=== PATIENT | male | born 1935 | race Caucasian/White ===

== ENCOUNTER 2016-12-21 06:50 | Day surgery (SDC) | payer MEDICARE, OTHER ==
[~2016-12-21] VITALS: Ht 177.8 cm; Wt 88.2 kg
[2016-12-21] VITALS (9 sets, daily range): BP systolic 115–139; BP diastolic 59–73; PULSE 45–52; RESP 13–19; O2SAT 97–100
[~2016-12-21 06:50] MED LIST: ASPI-973 PO; ATOR20TA PO; CeFAZolin 2 Gm/50 mL D5W IV Premix IV ONE; METO25TA6 PO
[2016-12-21] MEDS ORDERED: fentaNYL-PF 50 mCg/mL 2 mL Inj ONE (06:51)
[2016-12-21] MEDS ORDERED: Propofol 10,000 mCg/mL 20 mL Inj ONE (06:51)
[2016-12-21] MEDS ORDERED: Phenylephrine/NS 100 mCg/mL 10 mL Syringe IVPUSH ONE (06:51)
[2016-12-21] MEDS ORDERED: Ondansetron 2 mg/mL 2 mL Inj ONE (06:51)
[2016-12-21] MEDS: Lactated Ringer's 1,000 ML IV SCH ×2 (07:27→09:14)
[2016-12-21] MEDS ORDERED: Lactated Ringer's 1,000 ML IV SCH (08:14)
[2016-12-21] MEDS ORDERED: Lactated Ringer's 500 ML IV PRN (08:14)
[2016-12-21] MEDS ORDERED: fentaNYL-PF 50 mCg/mL 2 mL Inj IVPUSH PRN (08:15)
[2016-12-21] MEDS ORDERED: Dexamethasone 4 mg/mL Inj IVPUSH PRN (08:15)
[2016-12-21] MEDS ORDERED: HYDROmorphone 1 mg/mL Inj IVPUSH PRN (08:15)
[2016-12-21] MEDS ORDERED: Phenylephrine 10,000 mCg/mL Inj IVPUSH PRN (08:15)
[2016-12-21] MEDS ORDERED: Ondansetron 2 mg/mL 2 mL Inj IVPUSH PRN (08:15)
[2016-12-21] MEDS ORDERED: EPHEDrine Sulfate 50 mg/mL Inj IVPUSH PRN (08:15)
[2016-12-21] MEDS ORDERED: MetoCLOpramide 5 mg/mL 2 mL Inj IVPUSH PRN (08:15)
--- NOTE | 2016-12-21 09:06 | PCM.HPANE ---
Patient Data Surgeon Admitting Provider: Attending Provider:Umberto Ortega MD Primary Care Physician:Danyell Morataya MD Other Provider:Deanna Calderóningham Anesthesia Reason for Visit Right Inguinal Hernia Ht/WT & BMI Height (Feet): 5 Height (Inches): 10 Weight (Kilograms): 88.2 Body Mass Index 27.00 Allergies Coded Allergies: No Known Allergies (Unverified Allergy, Unknown, 04/05/14) Past Anesthesia History Anesthesia History: Denies:: Anesthesia Reactions, Fam Anesthesia Reaction, Fam Malignant Hypertherm, Malignant Hyperthermia Diabetes History Hx Diabetes?: No Current Bedside Blood Glucose: 121 MRSA MRSA: No Medications Blood Thinner: Aspirin Hypertension Medication: Yes Home Meds Incl Beta Arsalan: Yes Date Beta Arsalan Taken: Dec 21, 2016 Time Beta Arsalan Taken: 0600 Reported Medications Metoprolol Tartrate 25 Mg Csbzht16.5 Mg PO BID 30 Days Ref 0 12/17/16 Aspirin 81 Mg Tjufai21 Mg PO DAILY Ref 0 12/17/16 Atorvastatin (Lipitor)20 Mg Nxhqqt31 Mg PO DAILY Ref 0 12/17/16 Discontinued Reported Medications Flaxseed (Flaxseed Oil)1,000 Mg Capsule1,000 Mg PO 04/28/14 Aspirin 325 Mg Tablet.dr325 Mg PO DAILY #1 BOTTLE Ref 0 04/28/14 oxyCODONE-Acetaminophen 10-325 mg 1 Each Tablet1 Tablet PO Q4H PRN For Pain Ref 0 04/28/14 Hydroxyzine Pamoate (HydrOXYzine Pamoate)25 Mg Cvuvkmv61 Mg PO Q6 PRN For Itching Ref 0 04/28/14 Ascorbic Acid (Vitamin C)1,000 Mg Tab.zkvv104 Mg PO BID #30 TABLET Ref 0 04/05/14 Atorvastatin Calcium 20 Mg Wottad03 Mg PO HS #30 TABLET Ref 0 04/05/14 Metoprolol Succinate ER 25 Mg Tab.er.24h12.5 Mg PO BID 30 Days Ref 0 04/05/14 History History of ENT Problems?: No HEENT History: Positive for:: Cataracts (bilateral surgery) Hearing Problem Denies:: Abnormal Airway Difficult Intubation Dysphagia Glaucoma Sinus Problem TMJ Denture Type: Partial- Lower Teeth Condition: Within Normal Limits Hx of Heart Problems?: Yes Cardiovascular History: Positive for:: Atrial Fibrillation (per Dr. Heath Mancini) Cardiac Surgery (PIG valve September 2009, Aortic Valve; CABG ) Hypertension Irregular Heartbeat Valvular Heart Disease (Aortic valve replacement, MPS-11/2016-ef 66%) Denies:: AICD Abdominal Aortic Aneurism Chest Pain Congestive Heart Failure Edema Heart Murmur Pacemaker Rheumatic Fever Thrombophlebitis Other History/Comments s/p CABG and aortic valve repair. Cardiac ROS negative, able to walk two flights of steps without difficutly, still actively working Hx of Respiratory Problem?: Yes Respiratory History: Positive for:: Chest Surgery (AVR) Denies:: Oxygen Administration Pneumonia Tuberculosis Use of C-PAP Machine Use of Inhalers / NEBS Other History/Comment ROS negative Hx Neurologic Problems?: No Neurological History: Denies:: Multiple Sclerosis Parkinson's Disease Seizures Hx of GI Problems?: Yes Gastrointestinal History: Denies:: Cirrhosis Diverticulitis Gall Bladder Disease Gastroesphageal Reflux Gastrointestinal Bleeding Heartburn Hepatitis Hiatal Hernia Liver Disease Rectal Bleeding Other GI Pertinent History: right inguinal hernia current admission problem Hx of Problems?: No Genitourinary History: Denies:: Kidney Stones Urinary Tract Infection Male Hx: Denies:: Prostate Problems (1991 Prostatectomy r/t CA) Skin History: Denies:: History Skin Disorders? (bruises easily because of daily baby aspirin) Pressure Ulcers Hx Musculoskeletal Problems?: Yes Musculoskeletal History: Positive for:: Joint Replacement (left total knee) Hx of Psycho/Social Problems?: No Hx Surgeries?: Yes (AVR, total left knee, RRPPL, bilat cataracts) Hx Any Other Health Problems?: Yes Other History: Positive for:: Cancer (prostate ca, surgically treated) Hospitalization (October 2013 with pleural effusion requiring two days with chest tube) Denies:: Thyroid Disease History Blood Transfusions: Positive for:: Blood Transfusions (questionable autologous transfusion) Denies:: Blood Transfuse Reaction Hx Diabetes: NoBedside Blood Glucose: 121 Hx Alcohol Use: NoHx Substance Use: No Smoking Status: Never Smoker Have You Smoked inLast 12 mo: No Stop/Bang Treated for Sleep Apnea?: No Do You Have a CPAP Machine?: No P-Blood Pressure: treated: Yes B- Body Mass Index > 35 kg/m2: No A- Age over 50: Yes N- Neck Large Circumference: No G- Gender Male: Yes Risk Assessment Category Category 1A: Patient has history of documented sleep apnea, and HAS NOT received any narcotic, sedative or anesthesia administration during this stay. Category 1B: Patient has history of documented sleep apnea, and HAS received any narcotic , sedative or anesthesia administration during this stay Category 2: Patient has SUSPECTED Obstructive Sleep Apnea, and HAS received any narcotic , sedative or anesthesia administration during this stay. Category 3: Patient has SUSPECTED Obstructive Sleep Apnea and HAS NOT received narcotic, sedative or anesthesia administration during this stay. Category 4: Outpatient in Procedural Areas with known sleep apnea or who screen positive for High Risk via the STOP/BANG questionnaire. Exam Exam Vital Signs Vital Signs Date Time Temp Pulse Resp B/P Pulse Ox O2 Delivery O2 Flow Rate FiO2 12/21/16 07:08 35.9 45 16 133/65 97 Room Air General Appearance: Alert, Oriented X3, Cooperative, No Acute Distress HEENT/AIRWAY: MP 2 Lungs: Clear to Auscultation, Normal Air Movement Heart: Exam Unremarkable, Regular Rate/Rhythm, Normal S1, Normal S2 Meds/Labs/Diagnostics Admission Meds Current Medications Lactated Ringer's (Lr) 1,000 ml @ 120 mls/hr Q8H20M IV Last administered on t 07:27; Start 12/21/16 at 05:00; Stop 12/21/16 at 13:19 Bedside Blood Glucose: 121 Plan Impression Patient chart reviewed, patient interviewed and anesthestic plan with risks, benefits, and alternatives discussed, and informed consent obtained. Dm Vazquez MD Dec 21, 2016 09:06
[2016-12-21] MEDS ORDERED: Bupivacaine 0.5% 50 mL Inj INFILTRATE ONE (09:38)
[2016-12-21] MEDS ORDERED: HYDROcodone-APAP 5-325 mg Tablet PO PRN (10:25)
[2016-12-21] MEDS ORDERED: HYDR-4003 PO (10:26)
--- NOTE | 2016-12-21 10:50 | OP ---
[address] [address] OPERATIVE REPORT PATIENT: CORNELIO DAWN : 1935 MR#: [id number] ADMIT: 12/21/2016 JOB ID: [id number] DATE OF SURGERY: 12/21/2016 PREOPERATIVE DIAGNOSIS(ES): Symptomatic right inguinal hernia. POSTOPERATIVE DIAGNOSIS(ES): Symptomatic indirect right inguinal hernia. OPERATION: Repair of symptomatic indirect right inguinal hernia with Kugel patch. SURGEON: Umberto Ortega MD. IRON ASSORTER: Tomas Beck MD and Elias Gilbert PA-C. INDICATIONS: An 81-year-old man with a symptomatic right inguinal hernia and after discussing options with the patient elected to proceed with repair. FINDINGS: He had an indirect right inguinal hernia. There was no palpable direct or femoral hernia. DESCRIPTION OF PROCEDURE: At the beginning and end of the operation, the SCOAP checklist was completed. An LMA anesthetic was induced. Using ChloraPrep, he was prepped and draped in usual fashion. He received preoperative antibiotics. He received local anesthesia with 0.5% plain bupivacaine. A right inguinal incision was designed and dissection was carried down through the skin and subcutaneous tissue and Kaitlin's fascia exposing the external oblique, which was opened in the direction of its fibers. The internal oblique was opened in the direction of its fibers. I put additional local anesthesia in all of those flares. The transversus abdominis was opened in the direction of its fibers and the transversalis fascia was opened vertically. The peritoneum was identified and it was dissected away from the deep epigastric artery and vein and the preperitoneal space was developed down below the pubic tubercle. The indirect sac was dissected off of the cord going posteriorly beyond the separation of the vas deferens from the gonadal vessels. I made a small hole in the peritoneum and this was repaired with 3-0 Vicryl. A small Kugel patch was positioned into the preperitoneal space where it rested comfortably without being wrinkled or folded. It was secured to the transversus abdominis with two interrupted 2-0 PDS. I then closed the transversus abdominis and internal oblique with 2-0 PDS and a small portion of the rectus fascia which I also had to divide with PDS. The external oblique was closed with 3-0 Vicryl. Kaitlin's with 3-0 Vicryl. Skin with subcuticular 4-0 Vicryl. Estimated blood loss less than 10 cc. No apparent complications. The final sponge, needle, and instrument counts were announced as correct and the patient was returned to recovery room in stable condition. Critical assistance was provided by Tomas Beck MD. Without his help the operation could not have been safely completed.
--- NOTE | 2016-12-21 11:40 | PCM.ANEP1 ---
Post Anesthesia PACU Phase 1 Assessment Vital Signs Vital Signs Date Time Temp Pulse Resp B/P Pulse Ox O2 Delivery O2 Flow Rate FiO2 12/21/16 11:37 50 16 126/73 97 Room Air 12/21/16 11:00 36.8 48 17 123/64 99 Room Air 12/21/16 10:55 49 18 115/59 98 Room Air 12/21/16 10:50 36.8 49 19 126/64 98 Room Air 12/21/16 10:45 50 17 122/67 100 Room Air 12/21/16 10:40 49 16 118/62 100 Simple Mask 10 12/21/16 10:35 48 13 138/67 100 Simple Mask 10 12/21/16 10:33 36.6 52 13 139/65 100 Simple Mask 10 12/21/16 07:08 35.9 45 16 133/65 97 Room Air Anesthetic Administered: GA Level of Alertness: Awake, talking MI's with Equal Strength: Yes Pain: No Nausea or Vomiting: No CV Function & Hydration Stable: Yes Airway Device: Oralpharangeal Airway Oxygen Delivery: Simple Mask Lungs: Clear to Auscultation, Normal Air Movement Dermatome Level: Full Sensation PACU Phase 2 Assessment Complications: No Follow up Care: N/A Patient Instructions Provided: N/A Dm Vazquez MD Dec 21, 2016 11:40
== END 2016-12-21 23:59 | disposition home or self-care (01) ==
LOC: SAS 06:50
PROVIDERS: ATTEND Surgery
PROC: 0YU Anatomical Regions, Lower Extremities, Supplement (ICD-10-PCS; principal; 2016-12-21 09:30)
DX: K40.90 Unilateral inguinal hernia, without obstruction or gangrene, not specified as recurrent (principal); I48.0 Paroxysmal atrial fibrillation; I25.709 Atherosclerosis of coronary artery bypass graft(s), unspecified, with unspecified angina pectoris; E78.00 Pure hypercholesterolemia, unspecified; Z95.3 Presence of xenogenic heart valve; I44.7 Left bundle-branch block, unspecified; Z90.79 Acquired absence of other genital organ(s); Z79.82 Long term (current) use of aspirin
CPT/HCPCS: 49505; C1781; J0690; J2370; J2405; J3010; J7120